=== PATIENT | female | born 1925 | race Caucasian/White ===

== ENCOUNTER 2016-05-26 16:41 | Emergency (ER) | payer MEDICARE | END 2016-05-26 18:24 | disposition home or self-care (01) | LOC: ER 16:41 | DX: S92.354A Nondisplaced fracture of fifth metatarsal bone, right foot, initial encounter for closed fracture (principal); M79.672 Pain in left foot; M25.572 Pain in left ankle and joints of left foot; X50.0XXA Overexertion from strenuous movement or load, initial encounter; Y92.019 Unspecified place in single-family (private) house as the place of occurrence of the external cause; Z88.5 Allergy status to narcotic agent; Z79.899 Other long term (current) drug therapy; Z79.82 Long term (current) use of aspirin | CPT/HCPCS: 73590; 73630; 99070; 99283 ==